=== PATIENT | male | born 1970 | race Hispanic/Latino ===

== ENCOUNTER 2019-01-30 18:55 | Emergency (ER) | payer OTHER ==
[~2019-01-30] VITALS: Ht 180.3 cm; Wt 110.2 kg
--- OUTSIDE RECORDS SUMMARY | 2019-01-30 18:58 | XMS REPORT | Summary of Care ---
Author Organization Unknown Address Unknown Phone Unavailable Care Team Providers Care Turret Lathe Machinist Name Role Phone Lester Bo PCP Unavailable Encounter [facility] Encntr_antolin(MARIEL) [id number] Date(s): 09/06/14 - 09/06/14 [facility] [address] [place] [address]- [phone] Discharge Disposition: Home Physician Attending: Kyaw Damon MD Physician_Referring: Kyaw Damon MD Vital Signs No data available for this section Problem List No data available for this section Allergies, Adverse Reactions, Alerts No data available for this section Medications No data available for this section Results No data available for this section Immunizations No data available for this section Procedures No data available for this section Social History No data available for this section Assessment and Plan No data available for this section
--- OUTSIDE RECORDS SUMMARY | 2019-01-30 18:58 | XMS REPORT | Summary of Care ---
Author Organization Unknown Address Unknown Phone Unavailable Care Team Providers Care Digital Strategist Name Role Phone Lester Bo PCP Unavailable Encounter Jami_antolin(MARIEL) [id number] Date(s): 02/15/14 - 02/15/14 [facility] [id number] [place] [address] Discharge Disposition: Home Physician Attending: Sage Mohan MD Physician_Referring: Sage Mohan MD Reason for Visit SUPRASPINATOUS TENDON TEAR. Problem List No data available for this section Allergies, Adverse Reactions, Alerts No data available for this section Medications No data available for this section Medications Administered During Your Visit No data available for this section Immunizations No data available for this section
--- OUTSIDE RECORDS SUMMARY | 2019-01-30 18:58 | XMS REPORT | Summary of Care ---
Author Author [facility] Organization [facility] Address Unknown Phone Unavailable Care Team Providers Care Measuring Machine Tender Name Role Phone Lester Bo PCP Unavailable Encounter [facility] Paloma(MARIEL) [id number] Date(s): 12/15/14 - 12/15/[address] Discharge Disposition: Home Attending Physician: Vahid Coppola MD Admitting Physician: Vahid Coppola MD Referring Physician: Vahid Coppola MD Vital Signs 1 2 3 Most recent to oldest [Reference Range]: 180.34 cm (12/15/14 10:31 AM) 180.34 cm (12/09/14 3:27 PM) Height 1 2 3 Most recent to oldest [Reference Range]: 120/78 mmHg (12/15/14 3:59 PM) 129/70 mmHg (12/15/14 3:30 PM) 119/82 mmHg (12/15/14 3:15 PM) Blood Pressure [90-140/60-90 mmHg] 1 2 3 Most recent to oldest [Reference Range]: 17 BRMIN (12/15/14 3:59 PM) 19 BRMIN (12/15/14 3:30 PM) 17 BRMIN (12/15/14 3:15 PM) Respiratory Rate [14-20 BRMIN] 1 2 3 Most recent to oldest [Reference Range]: 86 bpm (12/15/14 10:31 AM) Peripheral Pulse Rate [60-100 bpm] 1 2 3 Most recent to oldest [Reference Range]: 117.273 kg (12/15/14 10:31 AM) 118.182 kg (12/09/14 3:27 PM) Weight 1 2 3 Most recent to oldest [Reference Range]: 36.06 m2 (12/15/14 10:31 AM) 36.34 m2 (12/09/14 3:27 PM) Body Mass Index Problem List Condition Effective Dates Status Health Status Informant HTN Active (hypertension)(Confi rmed) Neck pain(Confirmed) Active Numbness(Confirmed)1 Active Obesity (BMI Active 30-39.9)(Confirmed)2 1right foot and left fingers 2BMI-36.3 Allergies, Adverse Reactions, Alerts Substance Reaction Severity Status NKDA Active Medications acetaminophen-hydrocodone 300 mg-10 mg/15 mL oral liquid 15 mL, Route: PO, Drug Form: SOLN, Dosing Weight 117.273, kg, Q4H, PRN Pain Scor e 4-6, Start date: 12/15/14 12:17:00, Duration: 30 day, Stop date: 01/14/15 12:1 6:00 Notes: Do not exceed 4gm/day of acetaminophen. (Same as: Zolvit) Start Date: 12/15/14 Stop Date: 12/16/14 Status: Discontinued acetaminophen-hydrocodone 325 mg-5 mg oral tablet 1 tab, Route: PO, Drug Form: TAB, Dosing Weight 117.273, kg, Q4H, PRN Pain Score 1-3, Start date: 12/15/14 12:17:00, Duration: 30 day, Stop date: 01/14/15 12:16 :00 Notes: (Same as: [place] 325/5) Do not exceed 4gm/day of acetaminophen. Start Date: 12/15/14 Stop Date: 12/16/14 Status: Discontinued atorvastatin 10 mg oral tablet 10 mg=1 tab, PO, Bedtime, # 90 tab, 0 Refill(s) Start Date: 12/09/14 Status: Ordered bupivacaine liposome 20 mL, Route: InFILtration(local), Drug Form: INJ, PRE OP, Start date: 12/15/14 6:00:00, Duration: 1 doses or times, Stop date: 12/15/14 23:00:00 Notes: (Same as: Exparel) NOT FOR IV use Postoperative analgesia: Infi ltration (local): Dose is based on surgical site and volume required to cover th e area (in general, the maximum total dose is 266 mg).Bunionectomy: 7 mL into th e tissues surrounding the osteotomy and 1 mL into the subcutaneous tissue of the surgical site (total dose=8 mL [106 mg])Hemorrhoidectomy: 30 mL (20 mL vial dil uted with 10 mL NS) divided and administered as 6 injections of 5 mL each (total dose=30 mL [266 mg]) Start Date: 12/15/14 Stop Date: 12/16/14 Status: Discontinued ceFAZolin 2 gm, 50 mL, Route: IVPB, Drug form: INJ, PRE OP, Start date: 12/15/14 6:00:00, Duration: 1 doses or times, Stop date: 12/15/14 23:00:00 Start Date: 12/15/14 Stop Date: 12/16/14 Status: Discontinued Colace 100 mg oral capsule 100 mg=1 cap, PO, BID, # 30 cap, 0 Refill(s) Start Date: 12/14/14 Status: Ordered cyclobenzaprine 10 mg oral tablet 10 mg=1 tab, PO, TID, PRN for spasms, X 21 day, # 63 tab, 0 Refill(s) Start Date: 12/14/14 Stop Date: 01/04/15 Status: Ordered cyclobenzaprine 10 mg oral tablet 10 mg=1 tab, PO, Bedtime, PRN for spasms, # 30 tab, 0 Refill(s) Start Date: 12/09/14 Stop Date: 01/08/15 Status: Ordered flumazenil 0.2 mg, 2 mL, Route: IVP, Drug form: INJ, PRN, Dosing Weight 117.273, kg, PRN Be nzodiazepine Reversal, Initial dose, Start date: 12/15/14 12:51:00, Duration: 2 day, Stop date: 12/17/14 12:50:00 Notes: (Same as: Romazicon) Start Date: 12/15/14 Stop Date: 12/16/14 Status: Discontinued gabapentin 300 mg oral capsule 300 mg=1 cap, PO, TID, # 90 cap, 1 Refill(s) Start Date: 12/09/14 Status: Ordered glimepiride 2 mg oral tablet 2 mg=1 tab, PO, Breakfast, # 30 tab, 1 Refill(s) Start Date: 12/09/14 Status: Ordered hydromorphone 0.5 mg, 0.25 mL, Route: IVP, Drug form: INJ, Q5Min, Dosing Weight 117.273, kg, P RN Pain Score 7-10, Start date: 12/15/14 12:51:00, Duration: 4 doses or times, S top date: Limited # of times Notes: Same as: Dilaudid Start Date: 12/15/14 Stop Date: 12/16/14 Status: Discontinued hydromorphone 0.5 mg, 0.25 mL, Route: IVP, Drug form: INJ, Q4H, Dosing Weight 117.273, kg, PRN Pain Score 4-6, Start date: 12/15/14 12:17:00, Duration: 30 day, Stop date: 12:16:00 Notes: Same as: Dilaudid Start Date: 12/15/14 Stop Date: 12/16/14 Status: Discontinued Invokana 300 mg oral tablet 300 mg=1 tab, PO, Before Breakfast, # 30 tab, 5 Refill(s) Start Date: 12/09/14 Status: Ordered Keflex 500 mg oral capsule 500 mg=1 cap, PO, TID, X 7 day, # 21 cap, 0 Refill(s) Start Date: 12/15/14 Stop Date: 12/22/14 Status: Ordered Kombiglyze XR 5 mg-1000 mg oral tablet, extended release 1 tab, PO, Daily, with evening meal, # 90 tab, 1 Refill(s) Special Instructions: with evening meal Start Date: 12/09/14 Status: Ordered labetalol 10 mg, 2 mL, Route: IVP, Drug form: INJ, Q5Min, Dosing Weight 117.273, kg, PRN E levated BP, Start date: 12/15/14 12:51:00, Duration: 5 doses or times, Stop date : Limited # of times Start Date: 12/15/14 Stop Date: 12/16/14 Status: Discontinued lisinopril 5 mg oral tablet 5 mg=1 tab, PO, Daily, # 30 tab, 1 Refill(s) Start Date: 12/09/14 Status: Ordered morphine Sulfate 4 mg, Route: IVP, ONCE, Dosing Weight 117.273, kg, Start date: 12/15/14 14:50:00 , Stop date: 12/15/14 14:50:00 Start Date: 12/15/14 Stop Date: 12/15/14 Status: Completed naloxone 0.04 mg, 0.1 mL, Route: IVP, Drug form: INJ, Q2MIN, Dosing Weight 117.273, kg, P RN Narcotic Reversal, Start date: 12/15/14 12:51:00, Duration: 8 doses or times, Stop date: Limited # of times Notes: Same as Narcan Start Date: 12/15/14 Stop Date: 12/16/14 Status: Discontinued naproxen 375 mg oral tablet 375 mg=1 tab, PO, BID, # 180 tab, 0 Refill(s) Start Date: 12/09/14 Status: Ordered ondansetron 4 mg, 2 mL, Route: IVP, Drug form: INJ, ONCE, Dosing Weight 117.273, kg, PRN Gustavo sea & Vomiting, Start date: 12/15/14 12:51:00 Notes: (Same as: Ulisses) MEDICATION WASTE Product Size: 4 mgProduct Was lanette: ___ mg Start Date: 12/15/14 Stop Date: 12/16/14 Status: Discontinued oxyCODONE 5 mg/5 mL oral solution 5 mg, 5 mL, Route: PO, Drug form: LIQ, Q4H, Dosing Weight 117.273, kg, PRN Pain Score 4-6, Start date: 12/15/14 12:51:00, Duration: 2 day, Stop date: 12/17/14 1 2:50:00 Notes: (Same as: 'Roxicodone) Start Date: 12/15/14 Stop Date: 12/16/14 Status: Discontinued Results ELECTROLYTES Most recent to 1 oldest [Reference Range]: Sodium Lvl [135-145 140 mEq/L mEq/L] (12/09/14 3:10 PM) Potassium Lvl 4.4 mEq/L [3.5-5.1 mEq/L] (12/09/14 3:10 PM) Chloride Lvl [95-109 104 mEq/L mEq/L] (12/09/14 3:10 PM) CO2 [24-32 mEq/L] 27 mEq/L (12/09/14 3:10 PM) AGAP [10.0-20.0 13.4 mEq/L mEq/L] (12/09/14 3:10 PM) CHEM PANEL Most recent to 1 oldest [Reference Range]: Creatinine Lvl 1.0 mg/dL [0.5-1.4 mg/dL] (12/09/14 3:10 PM) eGFR 90 mL/min/1.73m2 1 *NA* (12/09/14 3:10 PM) BUN [7-22 mg/dL] 13 mg/dL (12/09/14 3:10 PM) Glucose Lvl [70-99 201 mg/dL mg/dL] *HI* (12/09/14 3:10 PM) Calcium Lvl 8.9 mg/dL [8.5-10.5 mg/dL] (12/09/14 3:10 PM) 1Result Comment: The eGFR is calculated using the CKD-EPI formula. In most young, healthy individuals the eGFR will be >90 mL/min/1.73m2. The eGFR declines with age. An eGFR of 60-89 may be normal in some populations, particularly the elderly, for whom the CKD-EPI formula has not been extensively validated. Use of the eGFR is not recommended in the following populations: Individuals with unstable creatinine concentrations, including patients and those with serious co-morbid conditions. Patients with extremes in muscle mass or diet. The data above are obtained from the National Kidney Disease Education Program ( NKDEP) which additionally recommends that when the eGFR is used in patients with extremes of body mass index for purposes of drug dosing, the eGFR should be mul tiplied by the estimated BMI. CARDIAC ENZYMES Most recent to 1 oldest [Reference Range]: Total CK [12-191 126 unit/L unit/L] (12/15/14 2:07 PM) CK MB [0.5-3.6 1.1 ng/mL ng/mL] (12/15/14 2:07 PM) CK MB Index 0.9 [0.0-2.5] (12/15/14 2:07 PM) Troponin-T <0.010 ng/mL [0.000-0.100 ng/mL] (12/15/14 2:07 PM) Troponin-I <0.02 ng/mL [0.00-0.40 ng/mL] (12/15/14 2:07 PM) SPECIAL CHEMISTRY Most recent to 1 oldest [Reference Range]: Hgb A1C [<=5.6 %] 6.5 % *HI* (12/09/14 3:10 PM) HEMATOLOGY Most recent to 1 oldest [Reference Range]: WBC [3.7-10.4 K/CMM] 8.3 K/CMM (12/09/14 3:10 PM) RBC [4.70-6.10 5.52 M/CMM M/CMM] (12/09/14 3:10 PM) Hgb [14.0-18.0 g/dL] 16.3 g/dL (12/09/14 3:10 PM) Hct [42.0-54.0 %] 49.9 % (12/09/14 3:10 PM) MCV [80.0-94.0 fL] 90.3 fL (12/09/14 3:10 PM) MCH [27.0-31.0 pg] 29.5 pg (12/09/14 3:10 PM) MCHC [32.0-36.0 32.7 g/dL g/dL] (12/09/14 3:10 PM) RDW [11.5-14.5 %] 13.6 % (12/09/14 3:10 PM) Platelet [133-450 196 K/CMM K/CMM] (12/09/14 3:10 PM) MPV [7.4-10.4 fL] 8.3 fL (12/09/14 3:10 PM) Segs [45.0-75.0 %] 64.6 % (12/09/14 3:10 PM) Lymphocytes 27.4 % [20.0-40.0 %] (12/09/14 3:10 PM) Monocytes [2.0-12.0 6.7 % %] (12/09/14 3:10 PM) Eosinophils [0.0-4.0 1.1 % %] (12/09/14 3:10 PM) Basophils [0.0-1.0 0.2 % %] (12/09/14 3:10 PM) Segs-Bands # 5.4 K/CMM [1.5-8.1 K/CMM] (12/09/14 3:10 PM) Lymphocytes # 2.3 K/CMM [1.0-5.5 K/CMM] (12/09/14 3:10 PM) Monocytes # [0.0-0.8 0.6 K/CMM K/CMM] (12/09/14 3:10 PM) Eosinophils # 0.1 K/CMM [0.0-0.5 K/CMM] (12/09/14 3:10 PM) Immunizations No data available for this section Procedures Procedure Date Related Diagnosis Body Site Operation1 Shoulder joint operations2 1back 1995, 1997 Social History Social History Type Response Smoking Status Never smoker; Exposure to Tobacco Smoke None; Cigarette Smoking Last 365 Days No; Reg Smoking Cessation Counseling No Assessment and Plan No data available for this section
--- OUTSIDE RECORDS SUMMARY | 2019-01-30 18:58 | XMS REPORT | Continuity of Care Document ---
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 Phone [employer] Unavailable Unavailable Problems Problem Status Onset Date Classification Date Reported Comments Source SUTURE REMOVAL Active 12/28/2014 Condition 12/28/2014 [facility] ULNAR NERVE RELEASE Active 12/08/2014 [facility] ULNAR NEUROPATHY, LEFT Active 12/02/2014 Condition 12/28/2014 [facility] CARPAL TUNNEL SYNDROME, BILATERAL Active 12/02/2014 Condition 12/28/2014 [facility] CERVICAL NECK PAIN Active 10/14/2014 Condition 12/28/2014 [facility] CERVICAL HNP W/O MYELOPHATHY Active 10/14/2014 Condition 12/28/2014 [facility] DEGENERATION OF CERVICAL INTERVERTEBRAL DISC Active 10/14/2014 Condition 12/28/2014 [facility] CERVICAL SPINAL STENOSIS Active 10/14/2014 Condition 12/28/2014 [facility] CERVICAL RADICULOPATHY Active 10/14/2014 Condition 12/28/2014 [facility] 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 Active 02/04/2014 [facility] Hypertensive disorder, systemic arterial (disorder) Active Problem 12/18/2014 [facility] Neck pain (finding) Active Problem 12/18/2014 [facility] Numbness (finding) Active Problem 12/18/2014 right foot and left fingers [facility] Obesity (disorder) Active Problem 12/18/2014 BMI-36.3 [facility] MYELOPATHY NEC Active [facility] ULNAR NERVE LESION Active [facility] Medications Medication Details Route Status Patient Instructions Ordering Provider Order Date Source HYDROCODONE-ACETAMINOPHEN TABS Active 12/28/2014 [facility] STOOL SOFTENER CAPS Active 12/28/2014 [facility] CYCLOBENZAPRINE HCL TABS Active 12/28/2014 [facility] GABAPENTIN TABS Active 12/28/2014 [facility] Morphine 4 mg, Route: IVP, ONCE, Dosing Weight 117.273, kg, Start date: 12/15/14 14:50:00, Stop date: 12/15/14 14:50:00 Inactive 12/15/2014 [facility] Labetalol 10 mg, 2 mL, Route: IVP, Drug form: INJ, Q5Min, Dosing Weight 117.273, kg, PRN Elevated BP, Start date: 12/15/14 12:51:00, Duration: 5 doses or times, Stop date: Limited # of times No Longer Active 12/15/2014 [facility] Ondansetron 4 mg, 2 mL, Route: IVP, Drug form: INJ, ONCE, Dosing Weight 117.273, kg, PRN Nausea & Vomiting, Start date: 12/15/14 12:51:00Notes: (Same as: Ulisses) MEDICATION WASTE Product Size: 4 mg Product Wasted: ___ mg No Longer Active 12/15/2014 [facility] Oxycodone Hydrochloride 1 MG/ML Oral Solution 5 mg, 5 mL, Route: PO, Drug form: LIQ, Q4H, Dosing Weight 117.273, kg, PRN Pain Score 4-6, Start date: 12/15/14 12:51:00, Duration: 2 day, Stop date: 12/17/14 12:50:00Notes: (Same as: 'Roxicodone) No Longer Active 12/15/2014 [facility] Hydromorphone 0.5 mg, 0.25 mL, Route: IVP, Drug form: INJ, Q5Min, Dosing Weight 117.273, kg, PRN Pain Score 7-10, Start date: 12/15/14 12:51:00, Duration: 4 doses or times, Stop date: Limited # of timesNotes: Same as: Dilaudid No Longer Active 12/15/2014 [facility] Naloxone 0.04 mg, 0.1 mL, Route: IVP, Drug form: INJ, Q2MIN, Dosing Weight 117.273, kg, PRN Narcotic Reversal, Start date: 12/15/14 12:51:00, Duration: 8 doses or times, Stop date: Limited # of timesNotes: Same as Narcan No Longer Active 12/15/2014 [facility] Flumazenil 0.2 mg, 2 mL, Route: IVP, Drug form: INJ, PRN, Dosing Weight 117.273, kg, PRN Benzodiazepine Reversal, Initial dose, Start date: 12/15/14 12:51:00, Duration: 2 day, Stop date: 12/17/14 12:50:00Notes: (Same as: Romazicon) No Longer Active 12/15/2014 [facility] Cephalexin 500 MG Oral Capsule [Keflex] 500 mg=1 cap, PO, TID, X 7 day, # 21 cap, 0 Refill(s) Active 12/15/2014 [facility] Acetaminophen 325 MG / Hydrocodone Bitartrate 5 MG Oral Tablet 1 tab, Route: PO, Drug Form: TAB, Dosing Weight 117.273, kg, Q4H, PRN Pain Score 1-3, Start date: 12/15/14 12:17:00, Duration: 30 day, Stop date: 01/14/15 12:16:00Notes: (Same as: [place] 325/5) Do not exceed 4gm/day of acetaminophen. No Longer Active 12/15/2014 [facility] Acetaminophen 20 MG/ML / Hydrocodone Bitartrate 0.667 MG/ML Oral Solution 15 mL, Route: PO, Drug Form: SOLN, Dosing Weight 117.273, kg, Q4H, PRN Pain Score 4-6, Start date: 12/15/14 12:17:00, Duration: 30 day, Stop date: 01/14/15 12:16:00Notes: Do not exceed 4gm/day of acetaminophen. (Same as: Zolvit) No Longer Active 12/15/2014 [facility] Hydromorphone 0.5 mg, 0.25 mL, Route: IVP, Drug form: INJ, Q4H, Dosing Weight 117.273, kg, PRN Pain Score 4-6, Start date: 12/15/14 12:17:00, Duration: 30 day, Stop date: 01/14/15 12:16:00Notes: Same as: Dilaudid No Longer Active 12/15/2014 [facility] bupivacaine liposome 20 mL, Route: InFILtration(local), Drug Form: INJ, PRE OP, Start date: 12/15/14 6:00:00, Duration: 1 doses or times, Stop date: 12/15/14 23:00:00Notes: (Same as: Exparel) NOT FOR IV use Postoperative analgesia: Infiltration (local): Dose is based on surgical site and volume required to cover the area (in general, the maximum total dose is 266 mg). Bunionectomy: 7 mL into the tissues surrounding the osteotomy and 1 mL into the subcutaneous tissue of the surgical site (total dose=8 mL [106 mg]) Hemorrhoidectomy: 30 mL (20 mL vial diluted with 10 mL NS) divided and administered as 6 injections of 5 mL each (total dose=30 mL [266 mg]) No Longer Active 12/15/2014 [facility] ceFAZolin 2 gm, 50 mL, Route: IVPB, Drug form: INJ, PRE OP, Start date: 12/15/14 6:00:00, Duration: 1 doses or times, Stop date: 12/15/14 23:00:00 No Longer Active 12/15/2014 [facility] cyclobenzaprine 10 mg oral tablet 10 mg=1 tab, PO, TID, PRN for spasms, X 21 day, # 63 tab, 0 Refill(s) Active 12/14/2014 [facility] Docusate Sodium 100 MG Oral Capsule [Colace] 100 mg=1 cap, PO, BID, # 30 cap, 0 Refill(s) Active 12/14/2014 [facility] naproxen 375 mg oral tablet 375 mg=1 tab, PO, BID, # 180 tab, 0 Refill(s) Active 12/09/2014 [facility] lisinopril 5 mg oral tablet 5 mg=1 tab, PO, Daily, # 30 tab, 1 Refill(s) Active 12/09/2014 [facility] 24 HR Metformin hydrochloride 1000 MG / saxagliptin 5 MG Extended Release Tablet [Kombiglyze 09/999] 1 tab, PO, Daily, with evening meal, # 90 tab, 1 Refill(s)Special Instructions: with evening meal Active 12/09/2014 [facility] canagliflozin 300 MG Oral Tablet [Invokana] 300 mg=1 tab, PO, Before Breakfast, # 30 tab, 5 Refill(s) Active 12/09/2014 [facility] glimepiride 2 mg oral tablet 2 mg=1 tab, PO, Breakfast, # 30 tab, 1 Refill(s) Active 12/09/2014 [facility] gabapentin 300 MG Oral Capsule 300 mg=1 cap, PO, TID, # 90 cap, 1 Refill(s) Active 12/09/2014 [facility] cyclobenzaprine 10 mg oral tablet 10 mg=1 tab, PO, Bedtime, PRN for spasms, # 30 tab, 0 Refill(s) Active 12/09/2014 [facility] atorvastatin 10 mg oral tablet 10 mg=1 tab, PO, Bedtime, # 90 tab, 0 Refill(s) Active 12/09/2014 [facility] NEURONTIN 300 MG CAPS 2 po tid Active 12/02/[address] [facility] CYCLOBENZAPRINE HCL 10 MG TABS 1 tab po q8h prn muscle spasms No Longer Active 10/14/2014 [facility] AMLODIPINE-ATORVASTATIN TABS Active 10/14/2014 [facility] GLIMEPIRIDE 2 MG TABS Active 10/14/2014 [facility] INVOKANA 300 MG TABS Active 10/14/2014 [facility] KOMBIGLYZE XR 5-1000 MG [id number] Active 10/14/2014 [facility] LISINOPRIL 5 MG TABS Active 10/14/2014 [facility] NAPROSYN 375 MG TABS Active 10/14/2014 [facility] TRAMADOL HCL 50 MG TABS No Longer Active 10/14/2014 [facility] LISINOPRIL 5 MG TABS Active 10/14/2014 [facility] TRAMADOL HCL 50 MG TABS No Longer Active 10/14/2014 [facility] CYCLOBENZAPRINE HCL 10 MG TABS 1 tab po q8h prn muscle spasms Active 10/14/2014 [facility] INVOKANA 300 MG TABS Active 10/14/2014 [facility] LISINOPRIL 5 MG TABS Active 10/14/2014 [facility] TRAMADOL HCL 50 MG TABS Active 10/14/2014 [facility] Allergies, Adverse Reactions, Alerts No Known Medication Allergies Immunizations No Data Provided for This Section Results Order Name Results Value Reference Range Date Interpretation Comments Source CARDIAC ENZYMES Troponin-I <0.02 0.00 - 0.40 12/15/2014 [facility] CARDIAC ENZYMES CK MB Index 0.9 0.0 - 2.5 12/15/2014 [facility] CARDIAC ENZYMES CK MB 1.1 0.5 - 3.6 12/15/2014 [facility] CARDIAC ENZYMES Troponin-T <0.010 0.000 - 0.100 12/15/2014 [facility] CARDIAC ENZYMES Total CK 126 12 - 191 12/15/2014 [facility] ELECTROLYTES AGAP 13.4 10.0 - 20.0 12/09/2014 [facility] ELECTROLYTES eGFR 90 12/09/2014 Result Comment: The eGFR is calculated using the [...] from the National Kidney Disease Education Program (NKDEP) which additionally recommends that when the eGFR is used in patients with extremes of body mass index for purposes of drug dosing, the eGFR should be multiplied by the estimated BMI. [facility] ELECTROLYTES Chloride Lvl 104 95 - 109 12/09/2014 [facility] ELECTROLYTES Creatinine Lvl 1.0 0.5 - 1.4 12/09/2014 [facility] ELECTROLYTES Sodium Lvl 140 135 - 145 12/09/2014 [facility] ELECTROLYTES Potassium Lvl 4.4 3.5 - 5.1 12/09/2014 [facility] ELECTROLYTES CO2 27 24 - 32 12/09/2014 [facility] ELECTROLYTES Calcium Lvl 8.9 8.5 - 10.5 12/09/2014 [facility] ELECTROLYTES Glucose Lvl 201 70 - 99 12/09/2014 [facility] ELECTROLYTES BUN 13 7 - 22 12/09/2014 [facility] HEMATOLOGY MCHC 32.7 32.0 - 36.0 12/09/2014 [facility] HEMATOLOGY MCH 29.5 27.0 - 31.0 12/09/2014 [facility] HEMATOLOGY MPV 8.3 7.4 - 10.4 12/09/2014 [facility] HEMATOLOGY Platelet 196 133 - 450 12/09/2014 [facility] HEMATOLOGY RDW 13.6 11.5 - 14.5 12/09/2014 [facility] HEMATOLOGY RBC 5.52 4.70 - 6.10 12/09/2014 [facility] HEMATOLOGY WBC 8.3 3.7 - 10.4 12/09/2014 [facility] HEMATOLOGY MCV 90.3 80.0 - 94.0 12/09/2014 [facility] HEMATOLOGY Hct 49.9 42.0 - 54.0 12/09/2014 [facility] HEMATOLOGY Hgb 16.3 14.0 - 18.0 12/09/2014 [facility] HEMATOLOGY Eosinophils 1.1 0.0 - 4.0 12/09/2014 [facility] HEMATOLOGY Monocytes 6.7 2.0 - 12.0 12/09/2014 [facility] HEMATOLOGY Lymphocytes 27.4 20.0 - 40.0 12/09/2014 [facility] HEMATOLOGY Lymphocytes # 2.3 1.0 - 5.5 12/09/2014 [facility] HEMATOLOGY Basophils 0.2 0.0 - 1.0 12/09/2014 [facility] HEMATOLOGY Segs-Bands # 5.4 1.5 - 8.1 12/09/2014 [facility] HEMATOLOGY Eosinophils # 0.1 0.0 - 0.5 12/09/2014 [facility] HEMATOLOGY Monocytes # 0.6 0.0 - 0.8 12/09/2014 [facility] HEMATOLOGY Segs 64.6 45.0 - 75.0 12/09/2014 [facility] SPECIAL CHEMISTRY Hgb A1C 6.5 <=5.6 % 12/09/2014 [facility] Pathology Reports No Data Provided for This Section Diagnostic Reports Report Value Date Source Spine cervical wo contrast MRI MRI CERVICAL SPINE WITHOUT CONTRAST INDICATION: Other myelopathy COMPARISON: None DISCUSSION: Alignment: Vertebral body alignment is within normal limits. Craniocervical junction: No abnormalities. The foramen magnum is patent. Vertebral bodies: Normal in height and signal from C2 through T2. Spinal cord: Normal in signal and morphology from the foramen magnum through T2-T3. Soft tissues: No signal abnormalities are visualized. Disc spaces, foramina, and spinal canal: C2-C3: The disc is normal in height and signal. There is no significant arthrosis. The spinal canal and foramina are patent. C3-C4: The disc is normal in height and signal. Bilateral uncovertebral and facet arthrosis result in severe bilateral foraminal stenosis, right worse than left. The spinal canal is patent. C4-C5: The disc is normal in height and signal. Bilateral uncovertebral and facet arthrosis results in mild bilateral foraminal stenosis. The spinal canal is patent. C5-C6: The disc is normal in height and signal. Right uncovertebral and facet arthrosis result in severe right foraminal stenosis. The spinal canal and left foramen are patent. C6-C7 and C7-T1: The discs are normal in height and signal. There is no significant arthrosis. The spinal canal and foramina are patent. IMPRESSION: Spondyloarthropathy results in varying degrees of foraminal stenosis, as described. Foraminal stenosis is most severe bilaterally at C3-C4 and on the right side at C5-C6. There is no spinal canal stenosis. SL: 16 09/06/2014 [facility] wo contrast MRI Examination: MRI of the right shoulder without contrast History: SUPRASPINATOUS TENDON TEAR Comparison: None. TECHNIQUE: Multiplanar, multisequence magnetic resonance imaging of the right shoulder was performed without administration of intravenous gadolinium contrast. Findings: Glenohumeral joint: Negative for acute bony fracture or joint dislocation. Degeneration throughout the superior glenoid labrum is seen without discrete tear. No capsular abnormality is seen. There is no high-grade chondral defect of the humeral head or glenoid fossa. Osseous acromion complex: The acromion is type II in morphology and shows horizontal orientation without significant narrowing of the supraspinatous outlet. No os acromiale is seen. Mild AC joint osteoarthrosis is present. Rotator cuff tendons: Moderate supraspinatus and infraspinatus tendinosis is seen. There are multiple high-grade interstitial tears of the distal supraspinatus tendon at the footprint with extensive cystic changes of the underlying greater tuberosity. Scattered low grade interstitial tears of the distal infraspinatus tendon at the footprint are also seen. Mild subscapularis tendinosis is also noted with a superimposed moderate grade interstitial tear of the distal tendon. Biceps tendon: Intracapsular biceps tendinosis is seen. No tendon subluxation or dislocation is present. Soft tissues: No extracapsular mass or cystic fluid collection is seen. No muscular atrophy or denervation edema is seen. IMPRESSION: 1. Moderate supraspinatus and infraspinatus tendinosis with multiple high grade interstitial tears of the distal supraspinatous tendon at the footprint. Additional scattered low grade interstitial tears of the distal infraspinatus tendon at the footprint are also seen. 2. Mild subscapularis tendinosis with moderate grade interstitial tear of the distal tendon. 3. Intracapsular biceps tendinosis. 4. Mild AC joint osteoarthrosis. SL: 12 02/15/2014 [facility] Consultation Notes No Data Provided for This Section Discharge Summaries No Data Provided for This Section History and Physicals No Data Provided for This Section Vital Signs Vital Sign Value Date Comments Source Height 71 12/28/2014 [facility] Heart Rate 89 12/28/2014 [facility] Weight 261.6 12/28/2014 [facility] Systolic (mm Hg) 120 12[facility]28/[facility] Diastolic (mm Hg) 82 12/28/2014 [facility] Temperature Oral (F) 98.5 F 12/28/2014 [facility] Weight 261.5 12/28/2014 [facility] Height 70 12/28/2014 [facility] Temperature Oral (F) 98.3 F 12/28/2014 [facility] Respitory Rate 20 12/28/2014 [facility] Heart Rate 89 12/28/2014 [facility] Systolic (mm Hg) 120 12/28/2014 [facility] Diastolic (mm Hg) 82 12/28/2014 [facility] Systolic (mm Hg) 120 12/15/2014 [facility] Diastolic (mm Hg) 78 12/15/2014 [facility] Respitory Rate 17 12/15/2014 [facility] Systolic (mm Hg) 129 12/15/2014 [facility] Diastolic (mm Hg) 70 12/15/2014 [facility] Respitory Rate 19 12/15/2014 [facility] Systolic (mm Hg) 119 12/15/2014 [facility] Diastolic (mm Hg) 82 12/15/2014 [facility] Respitory Rate 17 12/15/2014 [facility] Heart Rate 86 12/15/2014 [facility] Height 180.34 cm 12/15/2014 [facility] Weight 117.273 12/15/2014 [facility] BMI Calculated 36.06 12/15/2014 [facility] Height 71 12/12/2014 [facility] Weight 263.6 12/12/2014 [facility] Temperature Oral (F) 98.3 F 12/12/2014 [facility] Systolic (mm Hg) 120 12/12/2014 [facility] Diastolic (mm Hg) 79 12/12/2014 [facility] Heart Rate 85 12/12/2014 [facility] BMI Calculated 36.34 12/09/2014 [facility] Weight 118.182 12/09/2014 [facility] Height 180.34 cm 12/09/2014 [facility] Weight 260 12/07/2014 [facility] Height 71 12/07/2014 [facility] Temperature Oral (F) 98.0 F 12/07/2014 [facility] Heart Rate 92 12/07/2014 [facility] Systolic (mm Hg) 120 12/07/2014 [facility] Diastolic (mm Hg) 87 12/07/2014 [facility] Weight 258.5 12/02/2014 [facility] Height 71 12/02/2014 [facility] Temperature Oral (F) 98.5 F 12/02/2014 [facility] Heart Rate 89 12/02/2014 [facility] Systolic (mm Hg) 127 12/02/2014 [facility] Diastolic (mm Hg) 84 12/02/2014 [facility] Weight 253.4 10/14/2014 [facility] Height 71 10/14/2014 [facility] Temperature Oral (F) 97.0 F 10/14/2014 [facility] Heart Rate 76 10/14/2014 [facility] Systolic (mm Hg) 120 10/14/2014 [facility] Diastolic (mm Hg) 77 10/14/2014 [facility] Respitory Rate 18 10/14/2014 [facility] Encounters Location Location Details Encounter Type Encounter Number Reason For Visit Attending Provider ADM Date DC Date Status Source [facility] [id number] Sage Moahn 02/15/2014 02/16/2014 [facility] Outpatient [id number] Kyaw Damon 09/06/2014 09/07/2014 [facility] Office Visit [id number] Alfonzo Bah MD 10/14/2014 10/14/2014 [facility] Office Visit [id number] Alfonzo Bah MD 12/02/2014 12/02/2014 [facility] Office Visit [id number] Alfonzo Bah MD 12/12/2014 12/12/2014 [facility] [id number] Vahid Anat 12/15/2014 12/16/2014 [facility] Spine Office Visit [id number] Alfonzo Bah MD 12/28/2014 12/28/2014 [facility] Procedures Procedure Code Date Perfomer Comments Source Operation<sup>1</sup> [id number] back 1997 [facility] Shoulder joint operations<sup>2</sup> [id number] 02/2014 [facility] Assessment and Plan No Data Provided for This Section Plan of Care No Data Provided for This Section Social History Social History Date Source Social History TypeResponse Smoking Status Never smoker; Exposure to Tobacco Smoke None; Cigarette Smoking Last 365 Days No; Reg Smoking Cessation Counseling No 12/15/2014 [facility] No data available for this section 09/07/2014 [facility] Family History No Data Provided for This Section Advance Directives No Data Provided for This Section Functional Status No Data Provided for This Section
--- OUTSIDE RECORDS SUMMARY | 2019-01-30 18:58 | XMS REPORT | Continuity of Care Document ---
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 Role Phone Olvin MICHAUD, Alfonzo SESAY Unavailable Insurance Providers Payer name Policy type / Coverage type Policy ID Covered constitution party ID Policy Mathew AMSHERIF MICHAUD - [facility] (MEDICAID HMO Encounters Encounter Performer Location Date Office Visit Alfonzo Bah MD [facility] [place] Dec 28, 2014 Problems Problem Effective Dates Problem Status CERVICAL NECK PAIN October 14, 2014 Active CERVICAL HNP W/O MYELOPHATHY October 14, 2014 Active 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, 2014 Active CERVICAL SPINAL STENOSIS October 14, 2014 Active CERVICAL RADICULOPATHY October 14, 2014 Active ULNAR NEUROPATHY, LEFT Dec 02, 2014 Active CARPAL TUNNEL SYNDROME, BILATERAL Dec 02, 2014 Active Procedures Date Description Comments October 11, 2014 smoking status never smoker October 14, 2014 smoking status Never smoker Dec 02, 2014 smoking status Never smoker Dec 07, 2014 smoking status Never smoker Dec 12, 2014 smoking status Never smoker Dec 28, 2014 smoking status Never smoker Medications Medication Instructions Start Date Status CYCLOBENZAPRINE HCL 10 MG TABS 1 tab po q8h prn muscle spasms October 14, 2014 Inactive AMLODIPINE-ATORVASTATIN TABS October 14, 2014 Active GLIMEPIRIDE 2 MG TABS October 14, 2014 Active INVOKANA 300 MG TABS October 14, 2014 Active KOMBIGLYZE XR 5-1000 MG [id number] October 14, 2014 Active LISINOPRIL 5 MG TABS October 14, 2014 Active NAPROSYN 375 MG TABS October 14, 2014 Active TRAMADOL HCL 50 MG TABS October 14, 2014 Inactive NEURONTIN 300 MG CAPS 2 po tid Dec 02, 2014 Active Vital Signs Date Description Test Result October 14, 2014 weight E&M - 3141-9 WEIGHT 253.4 lb October 14, 2014 height E&M - 8302-2 HEIGHT 71 in October 14, 2014 temperature E&M TEMPERATURE 97.0 deg f October 14, 2014 pulse rate E&M - 8867-4 PULSE RATE 76 /min October 14, 2014 blood pressure, systolic - 8480-6 BP SYSTOLIC 120 mm Hg October 14, 2014 blood pressure, diastolic - 8462-4 BP DIASTOLIC 77 mm Hg October 14, 2014 respiratory rate E&M - 9279-1 RESP RATE 18 /min Dec 02, 2014 weight E&M - 3141-9 WEIGHT 258.5 lb Dec 02, 2014 height E&M - 8302-2 HEIGHT 71 in Dec 02, 2014 temperature E&M TEMPERATURE 98.5 deg f Dec 02, 2014 pulse rate E&M - 8867-4 PULSE RATE 89 /min Dec 02, 2014 blood pressure, systolic - 8480-6 BP SYSTOLIC 127 mm Hg Dec 02, 2014 blood pressure, diastolic - 8462-4 BP DIASTOLIC 84 mm Hg Dec 07, 2014 weight E&M - 3141-9 WEIGHT 260 lb Dec 07, 2014 height E&M - 8302-2 HEIGHT 71 in Dec 07, 2014 temperature E&M TEMPERATURE 98.0 deg f Dec 07, 2014 pulse rate E&M - 8867-4 PULSE RATE 92 /min Dec 07, 2014 blood pressure, systolic - 8480-6 BP SYSTOLIC 120 mm Hg Dec 07, 2014 blood pressure, diastolic - 8462-4 BP DIASTOLIC 87 mm Hg Dec 12, 2014 height E&M - 8302-2 HEIGHT 71 in Dec 12, 2014 weight E&M - 3141-9 WEIGHT 263.6 lb Dec 12, 2014 temperature E&M TEMPERATURE 98.3 deg f Dec 12, 2014 blood pressure, systolic - 8480-6 BP SYSTOLIC 120 mm Hg Dec 12, 2014 blood pressure, diastolic - 8462-4 BP DIASTOLIC 79 mm Hg Dec 12, 2014 pulse rate E&M - 8867-4 PULSE RATE 85 /min Dec 28, 2014 weight E&M - 3141-9 WEIGHT 261.5 lb Dec 28, 2014 height E&M - 8302-2 HEIGHT 70 in Dec 28, 2014 temperature E&M TEMPERATURE 98.3 deg f Dec 28, 2014 respiratory rate E&M - 9279-1 RESP RATE 20 /min Dec 28, 2014 pulse rate E&M - 8867-4 PULSE RATE 89 /min Dec 28, 2014 blood pressure, systolic - 8480-6 BP SYSTOLIC 120 mm Hg Dec 28, 2014 blood pressure, diastolic - 8462-4 BP DIASTOLIC 82 mm Hg Dec 28, 2014 height E&M - 8302-2 HEIGHT 71 in Dec 28, 2014 pulse rate E&M - 8867-4 PULSE RATE 89 /min Dec 28, 2014 weight E&M - 3141-9 WEIGHT 261.6 lb Dec 28, 2014 blood pressure, systolic - 8480-6 BP SYSTOLIC 120 mm Hg Dec 28, 2014 blood pressure, diastolic - 8462-4 BP DIASTOLIC 82 mm Hg Dec 28, 2014 temperature E&M TEMPERATURE 98.5 deg f
--- OUTSIDE RECORDS SUMMARY | 2019-01-30 18:59 | XMS REPORT | Continuity of Care Document ---
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 [place] Dec 28, 2014 Problems Problem Effective Dates Problem Status CERVICAL NECK PAIN October 14, 2014 Active CERVICAL HNP W/O MYELOPHATHY October 14, 2014 Active 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, 2014 Active CERVICAL SPINAL STENOSIS October 14, 2014 Active CERVICAL RADICULOPATHY October 14, 2014 Active ULNAR NEUROPATHY, LEFT Dec 02, 2014 Active CARPAL TUNNEL SYNDROME, BILATERAL Dec 02, 2014 Active SUTURE REMOVAL Dec 28, 2014 Active Procedures Date Description Comments October 11, 2014 smoking status never smoker October 14, 2014 smoking status Never smoker Dec 02, 2014 smoking status Never smoker Dec 07, 2014 smoking status Never smoker Dec 12, 2014 smoking status Never smoker Dec 28, 2014 smoking status Never smoker Dec 28, 2014 smoking status Never smoker Medications Medication Instructions Start Date Status CYCLOBENZAPRINE HCL 10 MG TABS 1 tab po q8h prn muscle spasms October 14, 2014 Inactive AMLODIPINE-ATORVASTATIN TABS October 14, 2014 Active GLIMEPIRIDE 2 MG TABS October 14, 2014 Active INVOKANA 300 MG TABS October 14, 2014 Active KOMBIGLYZE XR 5-1000 MG [id number] October 14, 2014 Active LISINOPRIL 5 MG TABS October 14, 2014 Active NAPROSYN 375 MG TABS October 14, 2014 Active TRAMADOL HCL 50 MG TABS October 14, 2014 Inactive NEURONTIN 300 MG CAPS 2 po tid Dec 02, 2014 Active HYDROCODONE-ACETAMINOPHEN TABS Dec 28, 2014 Active STOOL SOFTENER CAPS Dec 28, 2014 Active CYCLOBENZAPRINE HCL TABS Dec 28, 2014 Active GABAPENTIN TABS Dec 28, 2014 Active Vital Signs Date Description Test [...]
--- OUTSIDE RECORDS SUMMARY | 2019-01-30 18:59 | XMS REPORT | Continuity of Care Document ---
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 Care Physics Teacher Name Role Phone Olvin MICHAUD, Alfonzo SESAY Unavailable Insurance Providers Payer name Policy type / Coverage type Policy ID Covered green party ID Policy Mathew AMSHERIF MICHAUD - [facility] (MEDICAID HMO Encounters Encounter Performer Location Date Office Visit Alfonzo Bah [place] [facility] [place] [place] Dec 12, 2014 Problems Problem Effective Dates Problem Status [...] 02, 2014 smoking status Never smoker Dec 12, 2014 smoking status Never smoker Medications Medication Instructions Start Date Status CYCLOBENZAPRINE HCL 10 MG TABS 1 tab po q8h prn muscle spasms October 14, 2014 Inactive AMLODIPINE-ATORVASTATIN TABS October 14, 2014 Active GLIMEPIRIDE 2 MG TABS October 14, 2014 Active INVOKANA 300 MG TABS October 14, 2014 Active KOMBIGLYZE XR 5-1000 MG [id number] October 14, 2014 Active LISINOPRIL 5 MG [...]
--- OUTSIDE RECORDS SUMMARY | 2019-01-30 18:59 | XMS REPORT ---
Author Author [facility] Address Unknown Phone Unavailable Care Team Providers Care Remedy Developer Name Role Phone Unavailable Unavailable Problems This patient has no known problems. Allergies, Adverse Reactions, Alerts This patient has no known allergies or adverse reactions. Medications This patient has no known medications. Encounters Start Date/Time End Date/Time Encounter Type Admission Type Attending [facility] Care Department Encounter ID 2018-12-30 08:27:00 2018-12-30 08:27:00 [id number] 2018-12-09 07:26:00 2018-12-09 07:26:00 Outpatient [facility] [id number] 2018-11-05 10:14:00 2018-11-05 10:14:00 Outpatient [id number] 2018-09-21 10:11:00 2018-09-21 10:11:00 Outpatient [facility] [id number]
--- OUTSIDE RECORDS SUMMARY | 2019-01-30 18:59 | XMS REPORT | Summary of Care ---
Author Author [facility] Address [address] [place] [address] Phone Unavailable Care Team Providers Care Metal Furniture Repairer Name Role Phone GHADA TALAMANTES M.D., JESUS Unavailable Unavailable KURT MICHAUD, GORDON Unavailable Unavailable Jayson Patel, Delvin Unavailable Unavailable Functional Status Name Dates Details Functional status health issues are not documented Status: Name Dates Details Cognitive status health issues are not documented Status: Problems Name Dates Details Left wrist sprain (842.00, S63.502A) Status: Active Closed displaced fracture of triquetrum of left wrist, initial encounter (814.03, S62.112A) Status: Active Carpal tunnel syndrome of left wrist (354.0, G56.02) Status: Active Neurapraxia of left upper extremity, initial encounter (955.9, S44.92XA) Status: Active Neurapraxia of left median nerve, initial encounter (955.1, S54.12XA) Status: Active Medications Name Dates Details Tylenol with Codeine #3 TABS Active Meloxicam TABS * Refills: 0 Active Meloxicam 7.5 MG Oral Tablet TAKE 1 TABLET DAILY WITH FOOD. Days: 30; Qty: 30 X Tablet; Refill: 3 * Quantity: 30 Refills: 3 JESUS TENORIO M.D. * Start : 30-Apr-2017 Active Allergies and Adverse Reactions Name Dates Details No Known Drug Allergies (Allergy) Status: Active Past Medical History Name Dates Details History of back pain (V13.59, Z87.39) Status: Resolved Procedures Procedure Dates Details Procedures not documented Immunization Name Dates Details Immunizations not documented Family History Name Dates Details No pertinent family history Status: Active Name Dates Details No pertinent family history Status: Active Social History Name Dates Details Unknown if ever smoked Vital Signs Date Test Result Details No Known Vitals to report Results Date Description Value Details Results not documented Plan of Care Name Dates Details Planned Observations Planned Goals not documented Planned Encounters Appointment; MONO CAZARES M.D. On: 26-Aug-2017 7:30 Instructions Name Dates Details Instructions not documented Encounters Appointment; CARLOS CASTAÑEDA M.D. Encounter Diagnosis: Problem not documented On: 20-Oct-2015 10:30 Appointment; JESUS TENORIO M.D. Encounter Diagnosis: Problem not documented On: 30-Apr-2017 8:15 Appointment; JESUS TENORIO M.D. Encounter Diagnosis: Problem not documented On: 07-May-2017 7:45 Appointment; MONO CAZARES M.D. Encounter Diagnosis: Problem not documented On: 27-May-2017 7:30
--- OUTSIDE RECORDS SUMMARY | 2019-01-30 18:59 | XMS REPORT | Continuity of Care Document ---
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 Care Toolmaker Helper Name Role Phone Olvin MICHAUD, Alfonzo SESAY Unavailable Insurance Providers Payer name Policy type / Coverage type Policy ID Covered democrat ID Policy Mathew AMSHERIF MICHADU - [facility] (MEDICAID HMO Encounters Encounter Performer Location Date Office Visit Alfonzo Bah MD [facility] [place] October 14, 2014 Problems Problem Effective Dates Problem Status CERVICAL NECK PAIN October 14, 2014 Active CERVICAL HNP W/O MYELOPHATHY October 14, 2014 Active 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, 2014 Active CERVICAL SPINAL STENOSIS October 14, 2014 Active CERVICAL RADICULOPATHY October 14, 2014 Active Procedures Date Description Comments October 11, 2014 smoking status never smoker October 14, 2014 smoking status Never smoker Medications Medication Instructions Start Date Status CYCLOBENZAPRINE HCL 10 MG TABS 1 tab po q8h prn muscle spasms October 14, 2014 Active AMLODIPINE-ATORVASTATIN TABS October 14, 2014 Active GLIMEPIRIDE 2 MG TABS October 14, 2014 Active INVOKANA 300 MG TABS October 14, 2014 Active KOMBIGLYZE XR 5-1000 MG [id number] October 14, 2014 Active LISINOPRIL 5 MG TABS October 14, 2014 Active NAPROSYN 375 MG TABS October 14, 2014 Active TRAMADOL HCL 50 MG TABS October 14, 2014 Active Vital Signs Date Description Test [...]
--- OUTSIDE RECORDS SUMMARY | 2019-01-30 18:59 | XMS REPORT | Continuity of Care Document ---
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 Care Electrocardiograph Technician Name Role Phone Olvin MICHAUD, Alfonzo SESAY Unavailable Insurance Providers Payer name Policy type / Coverage type Policy ID Covered democrat ID Policy Mathew AMSHERIF MICHAUD - [facility] (MEDICAID HMO Encounters Encounter Performer Location Date Office Visit Alfonzo Bah MD [facility] [place] Dec 02, 2014 Problems Problem Effective Dates Problem Status [...] Dec 02, 2014 smoking status Never smoker Medications Medication Instructions Start Date Status CYCLOBENZAPRINE HCL 10 MG TABS 1 tab po q8h prn muscle spasms October 14, 2014 Inactive AMLODIPINE-ATORVASTATIN TABS October 14, 2014 Active GLIMEPIRIDE 2 MG TABS October 14, 2014 Active INVOKANA 300 MG TABS October 14, 2014 Active KOMBIGLYZE XR 5-1000 MG [id number] October 14, 2014 Active LISINOPRIL 5 MG TABS October 14, 2014 Active NAPROSYN 375 MG TABS October 14, 2014 Active TRAMADOL HCL 50 MG TABS October 14, 2014 Active NEURONTIN 300 MG CAPS 1 po tid Dec 02, 2014 Active Vital [...]
--- OUTSIDE RECORDS SUMMARY | 2019-01-30 18:59 | XMS REPORT | Continuity of Care Document ---
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 Care Filter Washer And Presser Name Role Phone Olvin MICHAUD, Alfonzo SESAY Unavailable Insurance Providers Payer name Policy type / Coverage type Policy ID Covered green party ID Policy Mathew DIANN MICHAUD - [facility] (MEDICAID HMO Encounters Encounter Performer Location Date Office Visit Alfonzo Bah MD [facility] [place] [facility] [place] Dec 12, 2014 Problems Problem Effective Dates [...] 14, 2014 Active KOMBIGLYZE XR 5-1000 MG [id number] October 14, 2014 Active LISINOPRIL 5 MG [...]
== END 2019-01-30 20:38 | disposition left against medical advice (07) ==
LOC: FSED 18:55
DX: Z48.01 Encounter for change or removal of surgical wound dressing (principal)